=== PATIENT | female | born 1975 | race Caucasian/White ===

== ENCOUNTER 2022-12-14 09:01 | Day surgery (SDC) | payer MEDICAID ==
[~2022-12-14] VITALS: Ht 162.6 cm; Wt 81.8 kg
[2022-12-14 09:10] VITALS: BP 96/64; PULSE 77; RESP 18; TEMP 98.3; O2SAT 98
[2022-12-14] MEDS ORDERED: PREG100C PO (09:58)
[2022-12-14] MEDS ORDERED: SERT25TA PO (09:58)
[2022-12-14] MEDS ORDERED: OXYB5TAB16 PO (09:58)
[2022-12-14] MEDS ORDERED: SENN8.6T19 PO (09:58)
[2022-12-14] MEDS ORDERED: MORP2SYR3 SQ (09:58)
[2022-12-14] MEDS ORDERED: OXYC20TA55 PO (09:58)
[2022-12-14] MEDS ORDERED: ATOR-2 PO (09:58)
[2022-12-14] MEDS ORDERED: METF-436 PO (09:58)
[2022-12-14] MEDS ORDERED: ENOX40SY7 SUBCUT (09:58)
[2022-12-14] MEDS ORDERED: LAMO100T PO (09:58)
[2022-12-14] MEDS ORDERED: LEVE10002 PO (09:58)
[2022-12-14] MEDS ORDERED: L. A1CAP2 PO (09:58)
[2022-12-14 11:05] VITALS: BP 103/65; PULSE 76; RESP 16; O2SAT 95
[2022-12-14 11:20] VITALS: BP 100/63; PULSE 78; RESP 16; O2SAT 94
[2022-12-14] MEDS ORDERED: oxyCODONE SR 10mg (sust. release) tab PO STA (12:59)
[2022-12-14 13:19] VITALS: BP 105/63; PULSE 78; RESP 15; O2SAT 93
[2022-12-14 14:00] VITALS: BP 102/60; PULSE 82; RESP 16; O2SAT 92
== END 2022-12-14 14:10 ==
LOC: SSTAY O 09:01
PROVIDERS: ATTEND Radiology Diagnostic Radiology
DX: Z43.1 Encounter for attention to gastrostomy (principal); Z88.5 Allergy status to narcotic agent; Z88.1 Allergy status to other antibiotic agents; Z88.8 Allergy status to other drugs, medicaments and biological substances; Z79.899 Other long term (current) drug therapy; Z96.651 Presence of right artificial knee joint
CPT/HCPCS: A6258; A6449